=== PATIENT | female | born 1965 | race African-American/Black ===

== ENCOUNTER 2019-01-31 15:00 | Emergency (ER) | payer SELFPAY ==
[~2019-01-31] VITALS: Ht 154.9 cm; Wt 85.0 kg
[2019-01-31 15:03] VITALS: BP 140/72
== END 2019-01-31 15:30 | disposition left against medical advice (07) ==
LOC: ER 15:00
DX: R07.89 Other chest pain (principal); Z53.21 Procedure and treatment not carried out due to patient leaving prior to being seen by health care provider